=== PATIENT | male | born 1985 | race Caucasian/White ===

== ENCOUNTER 2020-11-18 20:17 | Emergency (ER) | payer OTHER, SELFPAY ==
[2020-11-18 20:37] VITALS: BP 118/71; PULSE 77; RESP 18; TEMP 37.2; O2SAT 99; BMI 46.7
[2020-11-18 21:29] LABS: MANUAL DIFF FLAG NO
[2020-11-18 21:31] LABS: Basophils Percent Auto 0.4 % (0-2); Eosinophils Absolute Auto 0.4 X10*3/uL (0.0-0.4); Eosinophils Percent Auto 4.1 % (0-4); Hematocrit 45.9 % (42-52); Hemoglobin 15.2 g/dl (14.0-18.0); Imm Gran Abs Auto 0.04 X10*3/uL (0.00-0.03); Imm Gran Pct Auto 0.4 % (0.0-0.4); Lymphocytes Absolute Auto 2.5 X10*3/uL (1.2-4.9); Lymphocytes Percent Auto 26.7 % (20-40); Mean Corpuscular HGB Conc 33.1 g/dl (31.0-36.0); Mean Corpuscular Hemoglobin 28.9 pg (27.0-33.0); Mean Corpuscular Volume 87.3 fL (80-98); Mean Platelet Volume 10.1 fL (9.4-12.4); Monocytes Absolute Auto 0.5 X10*3/uL (0.1-1.2); Monocytes Percent Auto 4.7 % (2-11); Neutrophils Percent Auto 63.7 % (45-73); Platelet Count 241 X10*3/uL (160-400); Red Blood Count 5.26 X10*6/uL (4.60-5.80); Red Cell Distribution Width 13.2 % (11.0-16.0); White Blood Count 9.5 X10*3/uL (4.8-10.8)
[2020-11-18 21:34] LABS: Appearance Urine CLEAR; Color Urine YELLOW; Glucose Urine UA NEG (NEG); Leukocyte Esterase Urine NEG (NEG); Nitrite Urine NEG (NEG); PH 5.5 (5.0-8.0); Specific Gravity - Urine >= 1.030 (1.005-1.025); Urine Blood NEG (NEG); Urine Ketones NEG (NEG); Urine Protein NEG (NEG-TRACE)
[2020-11-18 21:43] LABS: Ethanol < 10 mg/dL
[2020-11-18 21:45] LABS: Anion Gap 12 (12-20); Blood Urea Nitrogen 10 mg/dL (9-16); Calcium 9.2 mg/dL (8.4-10.2); Carbon Dioxide 30 mmol/L (22-29); Chloride 105 mmol/L (96-108); Creatinine Clr Calc Pharmacy 158.1; Estimated Glomerular Filt Rate > 60; Glucose Random 82 mg/dL (60-115); Potassium 4.3 mmol/L (3.3-5.1); Sodium 143 mmol/L (135-145)
[2020-11-18 21:47] LABS: COVID-19 Test Negative (Negative)
[2020-11-18 21:49] LABS: Amphetamine Screen Urine Not Detected (Not Detect); Barbiturates, Urine Not Detected (Not Detect); Benzodiazepines Screen Urine Not Detected (Not Detect); Cannabinoid Screen Urine Not Detected (Not Detect); Cocaine Screen Urine Not Detected (Not Detect); Fentanyl, urine Not Detected (Not Detect); Opiate Screen Urine Not Detected (Not Detect); Phencyclidine Screen Urine Not Detected (Not Detect)
[2020-11-18 21:54] LABS: Mucus Urine 4+ /LPF; RBC Urine 0-2 /HPF (0); Squamous Epithelial Cell Urine 1+ /LPF; WBC Urine 0-2 /HPF (0-4)
[2020-11-18 21:57] LABS: Alanine Aminotransferase 16 U/L (0-40); Albumin Level 4.4 g/dL (3.5-5.0); Alkaline Phosphatase 97 U/L (39-117); Aspartate Amino Transferase 16 U/L (5-37); Bilirubin Direct < 0.2 mg/dL (0.0-0.5); Bilirubin Total 0.4 mg/dL (0.0-1.0); Total Protein 7.1 g/dL (6.5-8.0)
[2020-11-18 22:17] LABS: TSH reflex Free T4 0.82 uIU/mL (0.32-4.0)
[2020-11-18 23:57] VITALS: BP 114/70; PULSE 70; RESP 17; TEMP 36.8; O2SAT 98
[2020-11-18] MEDS: Melatonin 3 MG TABLET 6 MG PO (23:58)
--- NOTE | 2020-11-19 00:49 | ED_ITS ---
HPI - Psych General Chief Complaint: Psychiatric Symptoms <Asim Gallo MD - Last Filed: 11/19/20 00:58> Stated Complaint: SI <Asim Gallo MD - Last Filed: 11/19/20 00:58> Time Seen by Provider: 11/18/20 21:18 <Asim Gallo MD - Last Filed: 11/19/20 00:58> Source: patient <Asim Gallo MD - Last Filed: 11/19/20 00:58> Mode of arrival: ambulatory <Asim Gallo MD - Last Filed: 11/19/20 00:58> Limitations: no limitations <Asim Gallo MD - Last Filed: 11/19/20 00:58> History of Present Illness HPI Narrative: 35-year-old male who presents emergency department for evaluation of suicidal ideation. The patient told the nursing staff ?I do not want to be here anymore ?, ?I want to end my life tonight, I want to take a bottle of Advil or slit my wrists ?, ?I feel mentally overwhelmed ?, and he told the nurse that he just wanted to hurt himself and no but he also. The patient told me that he has been depressed and anxious for approximately 3-4 months. He states that he has intense thoughts of that are constant and overwhelming. He states that he has cut himself in the past. The patient was in respite in June 2020. He states that he has been taking Lamictal for approximately 1 month and this has not helped his depression or his anxiety. He denies hurting himself in any way prior to coming to the emergency department, he denies taking any pxyd-spu-rumeiaz medications or other medications. <Asim Gallo MD - Last Filed: 11/19/20 00:58> Related Data Home Medications: Home Medications Medication Instructions Recorded Confirmed hydroxyzine HCl 50 mg tablet 0.5 - 1 tab PO BID PRN 11/18/20 11/18/20 lamotrigine 25 mg tablet 1 tab PO DAILY 11/18/20 11/18/20 melatonin 10 mg tablet 0.5 - 1 tab PO BEDTIME 11/18/20 11/18/20 <Asim Gallo MD - Last Filed: 11/19/20 00:58> Allergies/Adverse Reactions: Allergies Allergy/AdvReac Type Severity Reaction Status Date / Time No Known Allergies Allergy Verified 11/18/20 20:36 <Asim Gallo MD - Last Filed: 11/19/20 00:58> Review of Systems Review of Systems: Yes all other systems are reviewed and are negative <Asim Gallo MD - Last Filed: 11/19/20 00:58> [facility] Past Medical History [facility] Narrative: Past medical history: Depression, anxiety. Past surgical history: Gastric sleeve surgery 2018. Social history: The patient denies tobacco use. The patient is a former smoker and quit approximately 5 years prior. He denies alcohol use. The patient states that he uses marijuana daily. <Asim Gallo MD - Last Filed: 11/19/20 00:58> Medical History: Medical History (Updated 11/19/20 @ 15:52 by Shantanu Mezt NP) Anxiety Depression Obesity <Asim Gallo MD - Last Filed: 11/19/20 00:58> Social History Social History: Social History Advance Directives: No Advance Directives Information Provided: No Guardian: No <Asim Gallo MD - Last Filed: 11/19/20 00:58> Physical Exam Vital Signs: Vital Signs: Last Vital Signs Temp 98.3 F 11/18/20 23:57 Pulse 60 11/19/20 11:23 Resp 14 11/19/20 11:23 BP 134/103 H 11/19/20 11:23 Pulse Ox 100 11/19/20 11:23 Body Mass Index 46.7 <Asim Gallo MD - Last Filed: 11/19/20 00:58> Vital Signs: Last Vital Signs Temp 98.3 F 11/18/20 23:57 Pulse 60 11/19/20 11:23 Resp 14 11/19/20 11:23 BP 134/103 H 11/19/20 11:23 Pulse Ox 100 11/19/20 11:23 Body Mass Index 46.7 <Shantanu Metz NP - Last Filed: 11/19/20 15:53> Const: General: cooperative and no acute distress <MD Allan Valderrama Last Filed: 11/19/20 00:58> Orientation/consciousness: oriented to person and oriented to place <MD Allan Valderrama Last Filed: 11/19/20 00:58> Limitations: no limitations <MD Allan Valderrama Last Filed: 11/19/20 00:58> HENMT: Head: Yes normal to inspection, Yes normocephalic and Yes atraumatic <MD Allan Valderrama Last Filed: 11/19/20 00:58> Ears: external ears normal <MD Allan Valderrama Last Filed: 11/19/20 00:58> General nose exam: Normal external nose present <MD Allan Valderrama Last Filed: 11/19/20 00:58> Face and sinus: Yes normal facial exam <MD Allan Valderrama Last Filed: 11/19/20 00:58> Mouth: Normal oral and palatal mucosa present <MD Allan Valderrama Last Filed: 11/19/20 00:58> Throat: Yes posterior oropharynx normal <MD Allan Valderrama Last Filed: 11/19/20 00:58> Eyes: General: appearance normal, both eyes and all related structures <MD Allan Valderrama Last Filed: 11/19/20 00:58> Pupils: Equal, round and reactive pupils present <MD Allan Valderrama Last Filed: 11/19/20 00:58> Neck: Neck: Yes normal visual inspection, Yes no lymphadenopathy, Yes trachea midline and Yes supple <MD Allan Valderrama Last Filed: 11/19/20 00:58> Chest: Chest palpation & inspection: normal inspection of the chest and normal palpation of entire chest wall <MD Allan Valderrama Last Filed: 11/19/20 00:58> Resp: Effort & Inspection: normal respiratory effort and able to speak in complete sentences <MD Allan Valderrama Last Filed: 11/19/20 00:58> Auscultation: clear to auscultation bilaterally <Asim Gallo MD - Last Filed: 11/19/20 00:58> Cardio: Rate: regular rate <MD Allan Valderrama Last Filed: 11/19/20 00:58> Rhythm: regular rhythm <MD Allan Valderrama Last Filed: 11/19/20 00:58> Heart sounds: S1 normal heart sound present, S2 normal heart sound present and no murmurs <MD Allan Valderrama Last Filed: 11/19/20 00:58> GI: Inspection: Yes normal to inspection <MD Allan Valderrama Last Filed: 11/19/20 00:58> Palpation (GI): Soft to palpation, nontender and no guarding <Asim daniel MD - Last Filed: 11/19/20 00:58> Auscultation: normal bowel sounds <MD Allan Valderrama Last Filed: 11/19/20 00:58> : General: Yes no CVA tenderness <MD Allan Valderrama Last Filed: 11/19/20 00:58> Back/Spine/Pelvis: Back: no CVA tenderness <MD Allan Valderrama Last Filed: 11/19/20 00:58> Skin: General skin exam: no rashes or lesions noted <MD Allan Valderrama Last Filed: 11/19/20 00:58> Neuro: General: oriented to person and oriented to place <MD Allan Valderrama Last Filed: 11/19/20 00:58> Cranial nerves: Yes CN's II-XII intact bilaterally and Yes Equal, round and reactive pupils present <MD Allan Valderrama Last Filed: 11/19/20 00:58> Cognition (Neuro): normal cognition <MD Allan Valderrama Last Filed: 11/19/20 00:58> Motor exam (neuro): 5/5 motor strength present throughout <MD Allan Valderrama Last Filed: 11/19/20 00:58> Extrem: General: Yes normal to inspection <MD Allan Valderrama Last Filed: 11/19/20 00:58> Psych: Appearance: grossly normal <Asim Gallo MD - Last Filed: 11/19/20 00:58> Speech and movement: Normal speech and movement present <Asim Gallo MD - Last Filed: 11/19/20 00:58> Affect: Sad affect present and Anxious affect present <Asim Gallo MD - Last Filed: 11/19/20 00:58> Attitude: cooperative <Asim Gallo MD - Last Filed: 11/19/20 00:58> Thought process: Normal thought process present <Asim Gallo MD - Last Filed: 11/19/20 00:58> Thought content: Suicidality present and no homicidality <Asim Gallo MD - Last Filed: 11/19/20 00:58> Course Course Course Narrative: 35-year-old male with a history of depression anxiety who presents to the emergency department with suicidal ideation. The patient has been on Lamictal for 1 month and he states that this is not helped his symptoms. Vital signs were normal. Physical examination was unremarkable. Laboratory evaluation and crisis consult was ordered. 0030: Laboratory evaluation: CBC was normal, CMP revealed an elevated bicarb of 30 otherwise was unremarkable. TSH was normal. Urinalysis and urine microscopic were unremarkable. Urine toxicology was negative. Blood alcohol level was below detectable limits. COVID-19 was negative. 0050: Patient was seen by crisis, at this point, the recommendation is to keep the patient overnight and re-evaluate him in the morning to see if he has improved or if he remains suicidal. 0050: Physician observation started at 0050. Patient placed in physician observation because the patient needed more time for observation and re- evaluation by crisis to determine if he is suicidal and requires inpatient therapy. The patient's outpatient medication regimen is ordered. At the time observation was started the patient's vitals were stable, patient is alert and oriented, Neuro: nonfocal, CV RRR, Lungs clear. <Asim Gallo MD - Last Filed: 11/19/20 00:58> Reevaluation(s) Reevaluation #1: Evaluated by the care team set up with outpatient partial program service s. Patient comfortable plan. No SI or HI. Care team will provide transportation services to the outpatient center. Patient otherwise well nontoxic appearing agreeable plan. Stable for discharge. <Shantanu Metz NP - Last Filed: 11/19/20 15:53> MDM - Psych Lab Data Result diagrams: : 11/18/20 21:18 11/18/20 21:18 <Asim Gallo MD - Last Filed: 11/19/20 00:58> Labs: Lab Results 11/18/20 11/18/20 11/18/20 Range/Units 21:18 21:18 21:18 WBC 9.5 (4.8-10.8) X10*3/uL RBC 5.26 (4.60-5.80) X10*6/uL Hgb 15.2 (14.0-18.0) g/dl Hct 45.9 (42-52) % MCV 87.3 (80-98) fL MCH 28.9 (27.0-33.0) pg MCHC 33.1 (31.0-36.0) g/dl RDW 13.2 (11.0-16.0) % Plt Count 241 (160-400) X10*3/uL MPV 10.1 (9.4-12.4) fL Immature Gran % (Auto) 0.4 (0.0-0.4) % Neut % (Auto) 63.7 (45-73) % Lymph % (Auto) 26.7 (20-40) % [place] % (Auto) 4.7 (2-11) % Eos % (Auto) 4.1 H (0-4) % Baso % (Auto) 0.4 (0-2) % Lymph # (Auto) 2.5 (1.2-4.9) X10*3/uL [place] # (Auto) 0.5 (0.1-1.2) X10*3/uL Eos # (Auto) 0.4 (0.0-0.4) X10*3/uL Baso # (Auto) 0.0 (0.0-0.2) X10*3/uL Abs Immat Gran (auto) 0.04 H (0.00-0.03) X10*3/uL Absolute Neuts (auto) 6.0 (2.0-8.3) X10*3/uL Absolute Nucleated RBC 0.000 (0.0-0.012) X10*3/uL Nucleated RBC % (auto) 0.0 (0.0-0.2) /100WBC Sodium 143 (135-145) mmol/L Potassium 4.3 (3.3-5.1) mmol/L Chloride 105 (96-108) mmol/L Carbon Dioxide 30 H (22-29) mmol/L Anion Gap 12 (12-20) BUN 10 (9-16) mg/dL Creatinine 0.83 (0.5-1.4) mg/dL Estim Creat Clear Calc 158.1 Estimated GFR > 60 Random Glucose 82 (60-115) mg/dL Calcium 9.2 (8.4-10.2) mg/dL Total Bilirubin 0.4 (0.0-1.0) mg/dL Direct Bilirubin < 0.2 (0.0-0.5) mg/dL AST 16 (5-37) U/L ALT 16 (0-40) U/L Alkaline Phosphatase 97 (39-117) U/L Total Protein 7.1 (6.5-8.0) g/dL Albumin 4.4 (3.5-5.0) g/dL TSH 0.82 (0.32-4.0) uIU/mL Urine Color Urine Appearance Urine pH (5.0-8.0) Ur Specific [place] (1.005-1.025) Urine Protein (NEG-TRACE) MG/DL Urine Glucose (UA) (NEG) MG/DL Urine Ketones (NEG) MG/DL Urine Blood (NEG) Urine Nitrite (NEG) Ur Leukocyte Esterase (NEG) Urine RBC (0) /HPF Urine WBC (0-4) /HPF Ur Squamous Epith Cells /LPF Urine Bacteria /LPF Urine Mucus /LPF Urine Opiates Screen (Not Detect) Urine Fentanyl Screen (Not Detect) Ur Barbiturates Screen (Not Detect) Ur Phencyclidine Scrn (Not Detect) Ur Amphetamines Screen (Not Detect) U Benzodiazepines Scrn (Not Detect) Urine Cocaine Screen (Not Detect) U Marijuana (THC) Screen (Not Detect) Ethyl Alcohol < 10 mg/dL COVID-19 (JB) (Negative) COVID-19 Clin Com 0911/18/20 11/18/20 Range/Units 21:19 21:19 21:19 WBC (4.8-10.8) X10*3/uL RBC (4.60-5.80) X10*6/uL Hgb (14.0-18.0) g/dl Hct (42-52) % MCV (80-98) fL MCH (27.0-33.0) pg MCHC (31.0-36.0) g/dl RDW (11.0-16.0) % Plt Count (160-400) X10*3/uL MPV (9.4-12.4) fL Immature Gran % (Auto) (0.0-0.4) % Neut % (Auto) (45-73) % Lymph % (Auto) (20-40) % [place] % (Auto) (2-11) % Eos % (Auto) (0-4) % Baso % (Auto) (0-2) % Lymph # (Auto) (1.2-4.9) X10*3/uL [place] # (Auto) (0.1-1.2) X10*3/uL Eos # (Auto) (0.0-0.4) X10*3/uL Baso # (Auto) (0.0-0.2) X10*3/uL Abs Immat Gran (auto) (0.00-0.03) X10*3/uL Absolute Neuts (auto) (2.0-8.3) X10*3/uL Absolute Nucleated RBC (0.0-0.012) X10*3/uL Nucleated RBC % (auto) (0.0-0.2) /100WBC Sodium (135-145) mmol/L Potassium (3.3-5.1) mmol/L Chloride (96-108) mmol/L Carbon Dioxide (22-29) mmol/L Anion Gap (12-20) BUN (9-16) mg/dL Creatinine (0.5-1.4) mg/dL Estim Creat Clear Calc Estimated GFR Random Glucose (60-115) mg/dL Calcium (8.4-10.2) mg/dL Total Bilirubin (0.0-1.0) mg/dL Direct Bilirubin (0.0-0.5) mg/dL AST (5-37) U/L ALT (0-40) U/L Alkaline Phosphatase (39-117) U/L Total Protein (6.5-8.0) g/dL Albumin (3.5-5.0) g/dL TSH (0.32-4.0) uIU/mL Urine Color YELLOW Urine Appearance CLEAR Urine pH 5.5 (5.0-8.0) Ur Specific [place] >= 1.030 H (1.005-1.025) Urine Protein NEG (NEG-TRACE) MG/DL Urine Glucose (UA) NEG (NEG) MG/DL Urine Ketones NEG (NEG) MG/DL Urine Blood NEG (NEG) Urine Nitrite NEG (NEG) Ur Leukocyte Esterase NEG (NEG) Urine RBC 0-2 (0) /HPF Urine WBC 0-2 (0-4) /HPF Ur Squamous Epith Cells 1+ /LPF Urine Bacteria NONE /LPF Urine Mucus 4+ /LPF Urine Opiates Screen Not Detected (Not Detect) Urine Fentanyl Screen Not Detected (Not Detect) Ur Barbiturates Screen Not Detected (Not Detect) Ur Phencyclidine Scrn Not Detected (Not Detect) Ur Amphetamines Screen Not Detected (Not Detect) U Benzodiazepines Scrn Not Detected (Not Detect) Urine Cocaine Screen Not Detected (Not Detect) U Marijuana (THC) Screen Not Detected (Not Detect) Ethyl Alcohol mg/dL COVID-19 (JB) Negative (Negative) COVID-19 Clin Com See Note <Asim Gallo MD - Last Filed: 11/19/20 00:58> Lab Results 11/18/20 11/18/20 11/18/20 Range/Units 21:18 21:18 21:18 WBC 9.5 (4.8-10.8) X10*3/uL RBC 5.26 (4.60-5.80) X10*6/uL Hgb 15.2 (14.0-18.0) g/dl Hct 45.9 (42-52) % MCV 87.3 (80-98) fL MCH 28.9 (27.0-33.0) pg MCHC 33.1 (31.0-36.0) g/dl RDW 13.2 (11.0-16.0) % Plt Count 241 (160-400) X10*3/uL MPV 10.1 (9.4-12.4) fL Immature Gran % (Auto) 0.4 (0.0-0.4) % Neut % (Auto) 63.7 (45-73) % Lymph % (Auto) 26.7 (20-40) % [place] % (Auto) 4.7 (2-11) % Eos % (Auto) 4.1 H (0-4) % Baso % (Auto) 0.4 (0-2) % Lymph # (Auto) 2.5 (1.2-4.9) X10*3/uL [place] # (Auto) 0.5 (0.1-1.2) X10*3/uL Eos # (Auto) 0.4 (0.0-0.4) X10*3/uL Baso # (Auto) 0.0 (0.0-0.2) X10*3/uL Abs Immat Gran (auto) 0.04 H (0.00-0.03) X10*3/uL Absolute Neuts (auto) 6.0 (2.0-8.3) X10*3/uL Absolute Nucleated RBC 0.000 (0.0-0.012) X10*3/uL Nucleated RBC % (auto) 0.0 (0.0-0.2) /100WBC Sodium 143 (135-145) mmol/L Potassium 4.3 (3.3-5.1) mmol/L Chloride 105 (96-108) mmol/L Carbon Dioxide 30 H (22-29) mmol/L Anion Gap 12 (12-20) BUN 10 (9-16) mg/dL Creatinine 0.83 (0.5-1.4) mg/dL Estim Creat Clear Calc 158.1 Estimated GFR > 60 Random Glucose 82 (60-115) mg/dL Calcium 9.2 (8.4-10.2) mg/dL Total Bilirubin 0.4 (0.0-1.0) mg/dL Direct Bilirubin < 0.2 (0.0-0.5) mg/dL AST 16 (5-37) U/L ALT 16 (0-40) U/L Alkaline Phosphatase 97 (39-117) U/L Total Protein 7.1 (6.5-8.0) g/dL Albumin 4.4 (3.5-5.0) g/dL TSH 0.82 (0.32-4.0) uIU/mL Urine Color Urine Appearance Urine pH (5.0-8.0) Ur Specific [place] (1.005-1.025) Urine Protein (NEG-TRACE) MG/DL Urine Glucose (UA) (NEG) MG/DL Urine Ketones (NEG) MG/DL Urine Blood (NEG) Urine Nitrite (NEG) Ur Leukocyte Esterase (NEG) Urine RBC (0) /HPF Urine WBC (0-4) /HPF Ur Squamous Epith Cells /LPF Urine Bacteria /LPF Urine Mucus /LPF Urine Opiates Screen (Not Detect) Urine Fentanyl Screen (Not Detect) Ur Barbiturates Screen (Not Detect) Ur Phencyclidine Scrn (Not Detect) Ur Amphetamines Screen (Not Detect) U Benzodiazepines Scrn (Not Detect) Urine Cocaine Screen (Not Detect) U Marijuana (THC) Screen (Not Detect) Ethyl Alcohol < 10 mg/dL COVID-19 (JB) (Negative) COVID-19 Clin Com 11/18/20 11/18/20 11/18/20 Range/Units 21:19 21:19 21:19 WBC (4.8-10.8) X10*3/uL RBC (4.60-5.80) X10*6/uL Hgb (14.0-18.0) g/dl Hct (42-52) % MCV (80-98) fL MCH (27.0-33.0) pg MCHC (31.0-36.0) g/dl RDW (11.0-16.0) % Plt Count (160-400) X10*3/uL MPV (9.4-12.4) fL Immature Gran % (Auto) (0.0-0.4) % Neut % (Auto) (45-73) % Lymph % (Auto) (20-40) % [place] % (Auto) (2-11) % Eos % (Auto) (0-4) % Baso % (Auto) (0-2) % Lymph # (Auto) (1.2-4.9) X10*3/uL [place] # (Auto) (0.1-1.2) X10*3/uL Eos # (Auto) (0.0-0.4) X10*3/uL Baso # (Auto) (0.0-0.2) X10*3/uL Abs Immat Gran (auto) (0.00-0.03) X10*3/uL Absolute Neuts (auto) (2.0-8.3) X10*3/uL Absolute Nucleated RBC (0.0-0.012) X10*3/uL Nucleated RBC % (auto) (0.0-0.2) /100WBC Sodium (135-145) mmol/L Potassium (3.3-5.1) mmol/L Chloride (96-108) mmol/L Carbon Dioxide (22-29) mmol/L Anion Gap (12-20) BUN (9-16) mg/dL Creatinine (0.5-1.4) mg/dL Estim Creat Clear Calc Estimated GFR Random Glucose (60-115) mg/dL Calcium (8.4-10.2) mg/dL Total Bilirubin (0.0-1.0) mg/dL Direct Bilirubin (0.0-0.5) mg/dL AST (5-37) U/L ALT (0-40) U/L Alkaline Phosphatase (39-117) U/L Total Protein (6.5-8.0) g/dL Albumin (3.5-5.0) g/dL TSH (0.32-4.0) uIU/mL Urine Color YELLOW Urine Appearance CLEAR Urine pH 5.5 (5.0-8.0) Ur Specific [place] >= 1.030 H (1.005-1.025) Urine Protein NEG (NEG-TRACE) MG/DL Urine Glucose (UA) NEG (NEG) MG/DL Urine Ketones NEG (NEG) MG/DL Urine Blood NEG (NEG) Urine Nitrite NEG (NEG) Ur Leukocyte Esterase NEG (NEG) Urine RBC 0-2 (0) /HPF Urine WBC 0-2 (0-4) /HPF Ur Squamous Epith Cells 1+ /LPF Urine Bacteria NONE /LPF Urine Mucus 4+ /LPF Urine Opiates Screen Not Detected (Not Detect) Urine Fentanyl Screen Not Detected (Not Detect) Ur Barbiturates Screen Not Detected (Not Detect) Ur Phencyclidine Scrn Not Detected (Not Detect) Ur Amphetamines Screen Not Detected (Not Detect) U Benzodiazepines Scrn Not Detected (Not Detect) Urine Cocaine Screen Not Detected (Not Detect) U Marijuana (THC) Screen Not Detected (Not Detect) Ethyl Alcohol mg/dL COVID-19 (JB) Negative (Negative) COVID-19 Clin Com See Note <Shantanu Metz NP - Last Filed: 11/19/20 15:53> Discharge Plan Discharge Clinical Impression: Acute anxiety <Asim Gallo MD - Last Filed: 11/19/20 00:58> Patient Disposition: Xfer to Respite Facility <Asim Gallo MD - Last Filed: 11/19/20 00:58> Instructions: Depression (ED) <Asim Gallo MD - Last Filed: 11/19/20 00:58> Prescriptions: No Action hydroxyzine HCl 50 mg tablet 0.5 - 1 tab PO BID PRN (Reason: anxiety attack) RF: 0 lamotrigine 25 mg tablet 1 tab PO DAILY RF: 0 melatonin 10 mg tablet 0.5 - 1 tab PO BEDTIME RF: 0 <Asim Gallo MD - Last Filed: 11/19/20 00:58> Referrals: Anand Choudhury MD [Primary Care Provider] - 2 days <Asmi Gallo MD - Last Filed: 11/19/20 00:58>
--- NOTE | 2020-11-19 05:41 | PC.NURSE ---
Patient slept through the night, no distress observed/reported, VSS, patient was assessed by care team, disposition is MARILYN f/u by care team, med compliant, behavior appropriate, will continue to monitor,
--- NOTE | 2020-11-19 07:14 | PC.NURSE ---
patient appears to remain asleep at present, respirations are even and unlabored, patient appears in no distress
[2020-11-19 11:23] VITALS: BP 134/103; PULSE 60; RESP 14; O2SAT 100
--- NOTE | 2020-11-19 15:25 | MHC.CARE ---
CARE team met with pt to discuss discharge plan and referrals. Pt feels safe and comfortable with discharge, continued to express concerns about his sleep and fatigue, discussed with pt that establishing a daily routine can help with improving energy and sleep. Referrals made to Partial Hospitalization Program at [facility] and for outpatient medication management through [facility] where pt is already established with a therapist. Pt will be transported home via lyft.
== END 2020-11-19 15:58 ==
PROVIDERS: Emergency Provider Emergency Medicine Emergency Medical Services; PCP Internal Medicine
DX: F33.1 Major depressive disorder, recurrent, moderate (principal); F41.1 Generalized anxiety disorder; F43.0 Acute stress reaction; R45.851 Suicidal ideations; Z20.822 Contact with and (suspected) exposure to COVID-19; Z79.899 Other long term (current) drug therapy
CPT/HCPCS: 36415; 80048; 80076; 80307; 81001; 82077; 84443; 85025; 87635; 99284

== ENCOUNTER 2022-05-08 06:44 | Emergency (ER) | payer OTHER, SELFPAY ==
--- NOTE | ~2022-05-08 | XR_ITS ---
EXAMINATION: XR ANKLE, LEFT. XR FOOT, LEFT. CLINICAL INFORMATION: Pain COMPARISON: None TECHNIQUE: 3 views of the left ankle. 3 views of the left foot. FINDINGS: No acute fracture or malalignment. The ankle mortise is preserved. Mild talocrural osteoarthritis. Mild osteoarthritis of the talonavicular and 2nd TMT joints with small osteophytes. No radiopaque foreign body. Enthesophyte and small chronic ossification at the Achilles tendon insertion. XR/XR foot LT min 3V IMPRESSION: No acute fracture or malalignment. Mild degenerative changes as described.
--- NOTE | ~2022-05-08 | XR_ITS ---
EXAMINATION: XR ANKLE, LEFT. XR FOOT, LEFT. CLINICAL INFORMATION: Pain COMPARISON: None TECHNIQUE: 3 views of the left ankle. 3 views of the left foot. FINDINGS: No acute fracture or malalignment. The ankle mortise is preserved. Mild talocrural osteoarthritis. Mild osteoarthritis of the talonavicular and 2nd TMT joints with small osteophytes. No radiopaque foreign body. Enthesophyte and small chronic ossification at the Achilles tendon insertion. XR/XR ankle LT min 3V IMPRESSION: No acute fracture or malalignment. Mild degenerative changes as described.
[2022-05-08 07:01] VITALS: BP 151/84; PULSE 96; RESP 20; TEMP 35.7; O2SAT 98; BMI 56.5
[2022-05-08 07:31] VITALS: BP 142/80; PULSE 58; RESP 19; TEMP 36.6; O2SAT 96
--- NOTE | 2022-05-08 07:46 | ED.LOWEXIN ---
HPI - Extremity Injury (Lower) General Chief Complaint: Extremity Injury, Lower Stated Complaint: L Foot Pain Time Seen by Provider: 05/08/22 07:24 Source: patient Mode of arrival: ambulatory History of Present Illness HPI Narrative: Patient presents to the emergency department complaining of left foot and ankle pain for about 2 weeks since injuring the foot stepping in the bus. Patient is ambulatory to the emergency department. MD complaint: foot injury Onset (ago): week(s) (2) Injury: Left: foot Type of Injury: unknown Place: street/outdoors Severity: moderate Relieving factors: nothing Exacerbating factors: weight bearing Associated symptoms: swelling Related Data Home Medications Medication Instructions Recorded Confirmed hydroxyzine HCl 50 mg tablet 0.5 - 1 tab PO BID PRN anxiety 11/18/20 11/18/20 attack lamotrigine 25 mg tablet 1 tab PO DAILY 11/18/20 11/18/20 melatonin 10 mg tablet 0.5 - 1 tab PO BEDTIME 11/18/20 11/18/20 Previous Rx's Medication Instructions Recorded diclofenac sodium 75 mg 75 mg PO BID PRN pain #20 tabs 05/08/22 tablet,delayed release Allergies Allergy/AdvReac Type Severity Reaction Status Date / Time No Known Allergies Allergy Verified 11/18/20 20:36 Review of Systems Constitutional: Constitutional: Reports no additional constitutional complaints ENT: Reports system reviewed and no additional complaints, except as documented Respiratory: Respiratory: Reports no additional respiratory complaints Gastrointestinal: Gastrointestinal: Reports no additional gastrointestinal complaints [facility] Past Medical History Attestation statement: The following information was validated with the patient. Medical History Anxiety Depression Obesity Social History Social History Advance Directives: No Advance Directives Information Provided: Yes Physical Exam Vital Signs: Vital Signs: Last Vital Signs Temp 98 F 05/08/22 07:31 Pulse 58 05/08/22 07:31 Resp 19 05/08/22 07:31 BP 142/80 H 05/08/22 07:31 Pulse Ox 96 05/08/22 07:31 O2 Del Method 05/08/22 07:31 BMI result Body Mass Index 56.5 Const: General: cooperative, comfortable, no acute distress, well developed, alert and awake Nutritional Appearance: well nourished Orientation/consciousness: patient oriented x3 HEENT: Head: Yes normal to inspection Ears: hearing grossly normal bilaterally General nose exam: Normal external nose present Face and sinus: Yes normal facial exam Mouth: Normal oral and palatal mucosa present Throat: Yes posterior oropharynx normal Chest: Chest palpation & inspection: normal inspection of the chest Resp: Effort & Inspection: normal respiratory effort Auscultation: clear to auscultation bilaterally Cardio: Rate: regular rate Rhythm: regular rhythm GI: Inspection: Yes normal to inspection Palpation (GI): Soft to palpation, not firm, nontender and no guarding Neuro: General: patient oriented x3 Extrem: Other: Examination of the left foot shows minimal swelling in the ankle tenderness in the dorsal aspect of the foot Course Reevaluation(s) Reevaluation #1: xray no fx will d/c home with Ortho follow up,he states that he had good pain control with diclofenac in the past,will give diclofenac sodium Medical Decision Making Medical Decision Making MDM Narrative: Patient presented with left foot pain after a with injury 2 weeks ago we are going to get imaging and reassess Differential Diagnosis Differential Diagnoses: The differential diagnosis associated with the presentation includes Differential diagnosis is broad include contusion/ligament sprain/fracture. There is no clinical evidence of DVT there is no calf tenderness Independent Interpretation I performed an independent interpretation of an: Plain X-Ray Interpretation: no fx Radiology Impression Discussion of test interpretation with radiology: I have reviewed the radiologist's reading. Radiologist Impression: COMPARISON: None? TECHNIQUE: 3 views of the left ankle. 3 views of the left foot.? FINDINGS: No acute fracture or malalignment. The ankle mortise is preserved. Mild talocrural osteoarthritis. Mild osteoarthritis of the talonavicular and 2nd TMT joints with small osteophytes. No radiopaque foreign body. Enthesophyte and small chronic ossification at the Achilles tendon insertion.? XR/XR foot LT min 3V IMPRESSION: No acute fracture or malalignment. Mild degenerative changes as described. ? Dictated By: Bradley Tanner MD Signed By: <Electronically signed by Bradley Tanner MD in [place]> 05/08/22 0800 Discharge Plan Discharge Clinical Impression: Foot pain, left Patient Disposition: Home, Self-Care Instructions: Metatarsalgia (DC) Additional Instructions: follow up with Ortho Prescriptions: New diclofenac sodium 75 mg tablet,delayed release (DR/EC) 75 mg PO BID PRN (Reason: pain) Qty: 20 0RF No Action hydroxyzine HCl 50 mg tablet 0.5 - 1 tab PO BID PRN (Reason: anxiety attack) lamotrigine 25 mg tablet 1 tab PO DAILY melatonin 10 mg tablet 0.5 - 1 tab PO BEDTIME Referrals: Santi Bennett MD [Physician] - 2 days
--- OUTSIDE RECORDS SUMMARY | 2022-05-08 08:04 | XMS_ITS | Continuity of Care Document ---
:1985 Author Organization [facility] Address [address] [place] [address]- Care Team Providers Name Role Phone Kei WEAVER MD, Anand Simmons Primary Care Physician Encounter [facility] Date(s): 10/01/21 - 10/01/[address] [address]- Discharge Disposition: A-D/C Walkout Attending Physician: Not on Staff, Attending MD Admitting Physician: Not on Staff, Admitting MD Referring Physician: Not on Staff, Referring MD Allergies, Adverse Reactions, Alerts No Known Allergies Immunizations Given and Recorded Vaccine Date Status Refusal Reason tetanus/diphtheria/pertussis, acel(Tdap) 09/04/10 Given Medications Crutches See Instructions, # 1 each, Maintenance, Dx: right ankle sprain Use as needed for comfort when walking, 11/15/13 5:38:15, Compound Start Date: 11/15/13 Status: OrderedCrutches See Instructions, # 1 application, Maintenance, No weight bearing on the LLE until there is no pain,07/28/13 7:33:26, Compound Start Date: 07/28/13 Status: Ordereddiclofenac sodium 50 mg oral delayed release tablet 1 tablet = 50 mg, By Mouth, 3 times a day, # 23 tablet, 0 Refills, Maintenance, 02/28/15 3:39:53, ECTablet Start Date: 02/28/15 Status: Orderedibuprofen 400 mg oral tablet 1 tablet = 400 mg, By Mouth, 4 times a day, PRN for fever, # 12 tablet, 0 Refills, Maintenance, 07/28/13 7:33:36, Tablet Start Date: 07/28/13 Stop Date: 07/31/13 Status: Orderedibuprofen 600 mg oral tablet 1 tablet = 600 mg, By Mouth, 4 times a day, PRN Pain, # 20 tablet, 0 Refills, Maintenance, 11/15/13 5:37:27, Tablet Start Date: 11/15/13 Stop Date: 11/20/13 Status: OrderedMotrin 800 mg oral tablet 1 tablet = 800 mg, By Mouth, 3 times a day, PRN Pain, # 30 tablet, 0 Refills, Maintenance, Tablet Start Date: 05/25/11 Status: Orderednaproxen 500 mg oral tablet 1 tablet = 500 mg, By Mouth, 2 times a day, PRN for pain, # 20 tablet, 0 Refills, Maintenance, Tablet Start Date: 01/02/13 Status: OrderedOmeprazole By Mouth, Daily, 0 Refills, Maintenance Start Date: 05/06/12 Status: OrderedPARoxetine 10 mg oral tablet 10 mg, 1, tablet, By Mouth, Daily, # 30 tablet, Refills 0, Tot. Refills 0, Maintenance, 07/10/20 6:30:00 EDT, Route to Pharmacy Electronically, [facility]/pharmacy #[id number], Partial fill upon patient request if the prescription is for a schedule II opioid drug. Start Date: 07/10/20 Status: OrderedPercocet-5/325 325 mg-5 mg oral tablet 1 tablet, By Mouth, Every 6 hours, PRN Pain , Moderate, # 8 tablet, 0 Refills, Maintenance Start Date: 04/06/12 Stop Date: 04/08/12 Status: OrderedSplint See Instructions, # 1 each, Maintenance, Dx: right ankle sprain Apply to right ankle as needed for comfort, 11/15/13 5:38:27, Compound Start Date: 11/15/13 Status: OrderedTylox 500 mg-5 mg oral capsule 1 capsule, By Mouth, Every 4 hours, PRN Pain, # 18 capsule, 0 Refills, Maintenance, Capsule Start Date: 05/25/11 Stop Date: 05/28/11 Status: OrderedTylox 500 mg-5 mg oral capsule 1 capsule, By Mouth, Every 4 hours, PRN for pain, # 12 capsule, 0 Refills, Maintenance, Capsule Start Date: 06/09/11 Status: OrderedValium 5 mg oral tablet 1 tablet = 5 mg, By Mouth, 4 times a day, PRN Spasm, # 7 tablet, 0 Refills, Maintenance, Tablet Start Date: 01/02/13 Status: OrderedZofran ODT 4 mg oral tablet, disintegrating 1 tablet = 4 mg, By Mouth, Every 8 hours, PRN Nausea & Vomiting, # 10 tablet, 0 Refills, Maintenance, Tablet Start Date: 04/28/12 Status: Ordered Problem List Condition Effective Dates Status Health Status Informant Morbid Obesity(Confirmed) Active Vital Signs Most recent to oldest [Reference Range]: 1 2 Oxygen Saturation [94-100 %] 99 % 98 % (10/01/21 5:29 PM) (10/01/21 4:58 PM) Pulse Rate [55-90 bpm] 72 bpm 104 bpm (10/01/21 5:29 PM) *H* (10/01/21 4:58 PM) Blood Pressure [90-138/55-84 mm Hg] 130/88 mm Hg (10/01/21 5:29 PM) Respiratory Rate [16-30 br/min] 18 br/min (10/01/21 5:29 PM) Temperature [96.8-100.4 DegF] 97.0 DegF (10/01/21 5:29 PM) Mode of Delivery (Oxygen) Room air Room air (10/01/21 5:29 PM) (10/01/21 4:58 PM) Blood pressure sites Arm, right (10/01/21 5:29 PM) Temperature Route Oral (10/01/21 5:29 PM)
--- OUTSIDE RECORDS SUMMARY | 2022-05-08 08:04 | XMS_ITS | Continuity of Care Document ---
:1985 Author Organization [facility] Address [address] [place] [id number]- Care Team Providers Name Role Phone Kei WEAVER MD, Anand Simmons Primary Care Physician [place] [facility] 07/10/20 - 07/10/[address] [address]- Encounter Diagnosis Anxiety (Final) - 07/10/20 Discharge Disposition: A-D/C Home Attending Physician: Marisela BOYD, Anai Rudd Admitting Physician: Marisela BOYD, Anai Rudd Referring Physician: Not on Staff, Referring MD Allergies, Adverse Reactions, Alerts Substance Reaction Severity Status NKA Active Immunizations Given and Recorded Vaccine Date Status [...] 02/28/15 3:39:53, ECTablet Start Date: 02/28/15 Status: OrderedhydrOXYzine hydrochloride 25 mg oral tablet 1 tablet = 25 mg, By Mouth, Daily at bedtime, PRN for anxiety, for 14 days, for sleep, # 14 tablet, 0 Refills, Acute 07/24/20 6:30:00 EDT, 07/10/20 6:30:00 EDT, Tablet, [facility] #[id number], Partial fillupon patient request if the prescription is for a... Start Date: 07/10/20 Stop Date: 07/24/20 Status: Orderedibuprofen 400 mg oral tablet 1 [...] 07/10/20 6:30:00 EDT, Route to Pharmacy Electronically, [facility]/pharmacy #[id number], Partial fill upon patient request if the [...] 2 Oxygen Saturation [94-100 %] 99 % 99 % (07/10/20 7:03 AM) (07/10/20 1:05 AM) Pulse Rate [55-90 bpm] 88 bpm 91 bpm (07/10/20 7:03 AM) *H* (07/10/20 1:05 AM) Blood Pressure [90-138/55-84 mm Hg] 142/87 mm Hg 135/ 85 mm Hg *H* (07/10/20 1:05 AM) (07/10/20 7:03 AM) Respiratory Rate [16-30 br/min] 18 br/min 17 br/mi n (07/10/20 7:03 AM) (07/10/20 1:05 AM) Temperature [96.8-100.4 DegF] 98.1 DegF (07/10/20 1:05 AM) Mode of Delivery (Oxygen) Room air (07/10/20 7:03 AM) Temperature Route Oral (07/10/20 1:05 AM)
== END 2022-05-08 08:46 | disposition home or self-care (01) ==
PROVIDERS: Emergency Provider Emergency Medicine; PCP Internal Medicine
DX: M79.672 Pain in left foot (principal); Z79.899 Other long term (current) drug therapy
CPT/HCPCS: 73610; 73630; 99282; 99283